=== PATIENT | male | born 1985 | race Caucasian/White ===

== ENCOUNTER 2017-05-24 11:10 | Emergency (ER) | payer SELFPAY | END 2017-05-24 13:36 | disposition home or self-care (01) | PROVIDERS: Emergency Provider Emergency Medicine; Visit Provider Emergency Medicine | DX: I88.0 Nonspecific mesenteric lymphadenitis (principal); R31.9 Hematuria, unspecified; Z72.0 Tobacco use | CPT/HCPCS: 36415; 74176; 80053; 81001; 83690; 85025; 85610; 85730; 87086; 96365; 96375; 99284; J2405 ==